=== PATIENT | male | born 1980 | race Caucasian/White ===

== ENCOUNTER 2016-10-02 10:11 | Emergency (ER) | payer BC, OTHER, MEDICAID ==
--- NOTE | ~2016-10-02 | CR2 ---
[facility] A Service of [facility] RADIOLOGY TEXT RESULTS PATIENT: LUKASZ WHITFIELD LOCATION: [facility] : 76 UNIT #: [id number] AGE: [address]: Berna Lora APRN SEX: M ORDER DR: [id number] [facility] [address] [place], [place] [address] [id number] E MR#: [id number] Acc #: [id number] NAME: LUKASZ WHITFIELD : 1980 SEX: M STUDY DATE/TIME: 10/02/2016 9:56 UNIT: [facility] ROOM: STUDY DESCRIPTION: CR Abdomen Acute Series Attending Physician: Berna Lora A.P.R.N. Ordering Physician: [facility] REPORT This report is preliminary unless electronic signature is present EXAM Acute abdominal series three views 10/02/16 COMPARISON: None HISTORY Upper abdominal pain, back pain and eructation since June. FINDINGS Chest radiograph shows no acute disease. Bowel gas pattern is normal. There is no evidence of obstruction or free air. IMPRESSION Normal negative acute abdominal series. Dictated by... Sean Jarrell M.D. THIS IS AN ELECTRONICALLY VERIFIED REPORT Sean Jarrell M.D. at 10/08/2016 10:43 AM TERELL/david TD: 10/02/2016 10:31 JOB #: [id number] MEDICAL IMAGING REPORT Page 1 of 1 COPY
--- NOTE | ~2016-10-02 | CT2 ---
[facility] A Service of [facility] RADIOLOGY TEXT RESULTS PATIENT: LUKASZ WHITFIELD LOCATION: [facility] : 76 UNIT #: [id number] AGE: [address]: Berna Lora APRN SEX: M ORDER DR: [id number] [facility] [address] [place], [place] [address] [id number] E MR#: [id number] Acc #: [id number] NAME: LUKASZ WHITFIELD : 1980 SEX: M STUDY DATE/TIME: 10/02/2016 11:56 UNIT: [facility] ROOM: STUDY DESCRIPTION: CT Abd and Pelv W Cont Attending Physician: Berna Lora A.P.R.N. Ordering Physician: [facility] Primary Care Physician: [facility] IMAGING REPORT This report is preliminary unless electronic signature is present EXAM Abdomen and pelvis CT with contrast 10/02/2016 INDICATIONS 36-year-old male with right-sided abdominal pain and constant belching for 4 days. History of kidney stones. TECHNIQUE Contrast-enhanced abdomen and pelvis CT was performed. No comparisons. The CT exam was performed with one or more of the following radiation dose reduction techniques: automatic exposure control, adjustment of mA and/or kV according to patient size, and iterative reconstruction. FINDINGS CT ABDOMEN: Included lung bases demonstrate atelectasis in the right lower lobe but otherwise clear. No effusion or pericardial effusion. The aorta demonstrates no aneurysm or dissection. Spleen, adrenal glands and pancreas are unremarkable. Gallbladder surgically absent. The liver demonstrates fatty infiltration. Kidneys demonstrate no hydronephrosis or inflammatory change. Minimal cortical scarring on the left. Nonobstructing 3-4 mm stone in the mid pole right kidney. Reactive-appearing retroperitoneal nodes are present. CT PELVIS: Bladder unremarkable. There is no drainable fluid collection in the pelvis. Bowel demonstrates no obstruction or focal inflammatory change and the appendix is normal. There are a few fluid-filled small bowel loops in the low abdomen and pelvis that are top normal in size at 2.6 cm but there is no transition point or distinct wall thickening to suggest active inflammatory change. Imaging features may reflect a mild localized small bowel ileus. There is a tiny left inguinal hernia [facility] A Service of [facility] RADIOLOGY TEXT RESULTS PATIENT: LUKASZ WHITFIELD LOCATION: [facility] : 76 UNIT #: [id number] AGE: [address]: Berna Lora INTERPRETER TRANSLATOR SEX: M ORDER DR: containing fat only. Reactive-appearing inguinal nodes are present. No free air. No suspicious bone lesion. Degenerative change of the thoracolumbar junction. IMPRESSION 1. No clearly acute process in the abdomen or pelvis. No bowel obstruction, drainable fluid collection or focal area of inflammatory change and the appendix is normal. 2. There are fluid filled top normal caliber small bowel loops in the low abdomen and pelvis. No well-defined transition point. Imaging features suggest a localized small bowel ileus. 3. Incidental fatty infiltration of the liver and postoperative change of cholecystectomy. 4. Nonobstructing stone in the right kidney measuring 3-4 mm. Dictated by... Andrew Puente M.D. THIS IS AN ELECTRONICALLY VERIFIED REPORT Andrew Puente M.D. at 10/02/2016 5:25 PM Anuj TD: 10/02/2016 13:03 JOB #: [id number] MEDICAL IMAGING REPORT Page 1 of 1 COPY
--- NOTE | ~2016-10-02 | EKG ---
PATIENT: LUKASZ WHITFIELD UNIT #: [id number] Ventricular Rate: 102 BPM Atrial Rate: 102 BPM P-R Interval: 138 ms QRS Duration: 80 ms Q-T Interval: 342 ms QTC Calculation(Bezet): 445 ms P [place]: 31 degrees Calculated R [place]: 41 degrees Calculated T [place]: 25 degrees Diagnosis Line: Sinus tachycardia Diagnosis Line: Septal infarct , age undetermined Diagnosis Line: Abnormal ECG Diagnosis Line: When compared with ECG of 02-JUL-2016 13:07, Diagnosis Line: No significant change was found Diagnosis Line: Confirmed by LONNIE GONZALEZ MD ([id number]) on Diagnosis Line: 10/02/2016 4:39:19 PM INTERPRETING MD: LISA HINDS
[2016-10-02 09:46] LABS: BASOPHIL# 0.1 X10e3 (0-0.3); BASOPHIL% 0.6 % (0-2.5); EOSINOPHIL# 0.3 X10e3 (0-0.7); EOSINOPHIL% 2.2 % (0.0-7.0); HEMATOCRIT 47.2 % (38.0-50.0); LYMPHOCYTE# 3.6 X10e3 (1.0-3.5); LYMPHOCYTE% 29.1 % (17.0-45.0); MEAN CELL VOLUME 92.9 FL (83-96); MEAN CORPUSCULAR HEMOGLOBIN 31.6 PG (28-34); MEAN PLATELET VOLUME 7.6 FL (6.5-11.5); MONOCYTE% 8.3 % (3.0-12.0); NEUTROPHIL# 7.4 X10e3 (1.5-7.1); NEUTROPHIL% 59.8 % (40-75); PLATELET COUNT 286 X10e3 (140-420); RED BLOOD COUNT 5.08 X10e (3.90-5.60); RED CELL DISTRIBUTION WIDTH 13.1 % (11.0-15.5); WHITE BLOOD COUNT 12.4 X10e3 (4.0-10.5)
[2016-10-02 09:50] LABS: DIFF IND NO
[2016-10-02 09:58] LABS: URINE SOURCE CLEAN CATCH
[2016-10-02 10:06] LABS: URINE APPEARANCE CLEAR; URINE BILIRUBIN NEG (NEG); URINE BLOOD NEG (NEG); URINE COLOR YELLOW; URINE GLUCOSE NEG (NEG); URINE KETONE NEG (NEG); URINE LEUKOCYTE ESTERASE NEG (NEG); URINE NITRATE NEG (NEG); URINE PH 6.5 (5-8); URINE PROTEIN NEG (NEG); URINE SPECIFIC GRAVITY 1.003 (1.003-1.035); URINE UROBILINOGEN 0.2 MG/DL (NEG)
[~2016-10-02 10:11] MED LIST: LORTAB 7.5-3251 EACH PO; NAPROSYN-EC500 M1 PO; NO MEDICATIONS; PHENERGAN25 M1 PO; PROTONIX PO; ZANAFLEX4 M1 PO
[2016-10-02 10:12] LABS: CULTURE INDICATED? NO
[2016-10-02 10:20] LABS: ALBUMIN SERUM 4.3 g/dL (3.5-5.0); BILIRUBIN, DIRECT 0.1 mg/dL (0.0-0.2); BILIRUBIN,INDIRECT 0.4 mg/dL (0.0-0.9); BILIRUBIN,TOTAL 0.5 mg/dL (0.2-2.0); BUN/CREATININE RATIO 7.77; CALCIUM SERUM 9.2 mg/dL (8.4-10.2); CREATININE SERUM 0.9 mg/dL (0.6-1.4); POTASSIUM 3.8 mmol/L (3.5-5.1); PROTEIN TOTAL SERUM 8.2 g/dL (6.0-8.3)
[2016-10-30] MEDS ORDERED: OXYCODONE HCL10 MG PO (10:25)
== END 2016-10-02 13:54 | disposition home or self-care (01) ==
LOC: CED 10:11
PROVIDERS: Nurse Practitioner
DX: G89.29 Other chronic pain (principal); R10.13 Epigastric pain; R10.11 Right upper quadrant pain; F17.210 Nicotine dependence, cigarettes, uncomplicated; K21.9 Gastro-esophageal reflux disease without esophagitis; Z90.49 Acquired absence of other specified parts of digestive tract; Z98.890 Other specified postprocedural states; Z88.0 Allergy status to penicillin; Z88.5 Allergy status to narcotic agent; Z88.8 Allergy status to other drugs, medicaments and biological substances
CPT/HCPCS: 36415; 74022; 74177; 80048; 80076; 81003; 82150; 83690; 85025; 93005; 96361; 96374; 96375; 99284; J1170; J2270; J2405; Q9967

== ENCOUNTER → 2016-11-06 | Day surgery (SDC) | payer BC, MEDICAID ==
[~2016-11-06] MED LIST changes: +OXYCODONE HCL10 MG PO
--- NOTE | ~2016-11-06 | OR ---
Unit #: [id number] #: [id number] Patient: LUKASZ WHITFIELD [id number] [address] [place], [place] [address] [id number] O MR#: [id number] NAME: LUKASZ WHITFIELD ROOM: Date of Procedure: 11/06/2016 Admission Date: 11/06/2016 Surgeon: Bassam Tejeda Jr., M.D. : 1980 Attending Physician: Bassam Tejeda Jr., M.D. Referring Physician: Bassam Tejeda Jr., M.D. Primary Care Physician: [facility] OPERATIVE REPORT INDICATION FOR PROCEDURE The patient is a 36-year-old white male, who approximately 5 months to 6 months status post laparoscopic cholecystectomy. He presented recently to the office complaining of a nodular mass of the right upper quadrant abdominal wall, the area of his upper port site for his gallbladder and it was felt he probably has an incarcerated hernia in the area. Although, this could be scar tissue as well. He is brought in this time for exploration of this with repair of hernia found. PREOPERATIVE DIAGNOSIS Possible port site incisional hernia. POSTOPERATIVE DIAGNOSIS No obvious hernia, but there was separation of the anterior rectus sheath as well as the scar tissue present. ANESTHESIA General with LMA and 0.5% Marcaine with epinephrine locally. PROCEDURE PERFORMED Exploration of the right upper quadrant with the excision of scar tissue, and reinforcement of anterior rectus sheath. DESCRIPTION OF PROCEDURE The patient was positioned in supine position. After being anesthetized, he was prepped and draped in routine fashion for exploration of the right upper quadrant abdominal wall. An elliptical incision was made around the scar from his previous surgery with the incision being approximately 3 inches in length. This was carried down through subcutaneous tissue down to the fascia of the muscle. The entire fascia of the muscle was released in an area approximately 3 x 5 to 6 cm and there was some nodular scar tissue present, but no obvious hernia. Scar tissue was removed. Hemostasis was achieved with Bovie cautery. There was a slight separation of the rectus muscle, which was not made iatrogenically today. It was closed with interrupted 0 Ethibond sutures. The wound was irrigated. After hemostasis achieved with Bovie cautery, the subcutaneous tissue was approximated with continuous 2-0 Vicryl stitch and the skin edges were approximated with stainless-steel skin clips with skin stapling device. Sterile dressings were applied externally. Estimated blood loss less than 20 mL. The patient received less than 1000 mL crystalloid solution during the procedure. Sponges and instrument counts were correct x3. No drains used. No complications. The patient was taken to the recovery room with Unit #: [id number] #: [id number] Patient: LUKASZ WHITFIELD stable vital signs in satisfactory condition. Dictated by... Bassam Tejeda Jr., M.D. LISA/eric TD: 11/07/2016 04:21 JOB #: [id number] OPERATIVE REPORT Page 1 of 1 X Bassam Tejeda MD X PROCEDURE OPERATIVE NOTE
== END | disposition home or self-care (01) ==
LOC: CSUR 08:52
DX: L90.5 Scar conditions and fibrosis of skin (principal); F41.9 Anxiety disorder, unspecified; K21.9 Gastro-esophageal reflux disease without esophagitis; F17.210 Nicotine dependence, cigarettes, uncomplicated; M19.90 Unspecified osteoarthritis, unspecified site; Z87.19 Personal history of other diseases of the digestive system; Z88.0 Allergy status to penicillin; Z88.8 Allergy status to other drugs, medicaments and biological substances; Z79.891 Long term (current) use of opiate analgesic; Z90.49 Acquired absence of other specified parts of digestive tract; Z98.890 Other specified postprocedural states; Z88.5 Allergy status to narcotic agent
CPT/HCPCS: J1100; J1885; J2250; J2270; J2765; J3010; J3370